=== PATIENT | female | born 1970 | race African-American/Black ===

== ENCOUNTER 2018-04-01 09:09 | Inpatient (IN) | payer MEDICAID ==
[~2018-04-01] VITALS: Ht 170.2 cm; Wt 91.2 kg
[2018-04-01] MEDS ORDERED: ACETAMINOPHEN 325MG TABLET PO STA (09:48)
[2018-04-01] MEDS ORDERED: SODIUM CHLORIDE 0.9% 1,000 ML IV ONE (09:48)
[2018-04-01 10:59] LABS: MEAN CORPUSCULAR HEMOGLOBIN 18.2 pg (28.0-32.0); MEAN CORPUSCULAR VOLUME 62.3 fL (81.0-99.0); MEAN PLATELET VOLUME 7.7 fl (7.4-10.4); PLATELET 320 x1000/uL (130-400); RED BLOOD CELL COUNT 3.37 mill/uL (4.2-5.4); RED CELL DISTRIBUTION WIDTH 18.8 % (11.6-14.6)
[2018-04-01 11:06] LABS: CHLORIDE 105 mEq/L (98-107); PROTHROMBIN TIME 10.5 sec (9.1-11.1)
[2018-04-01 11:08] LABS: HEMOGLOBIN. 6.1 g/dL (12.0-16.0)
[2018-04-01 11:19] LABS: CLARITY URINE TURBID (CLEAR); COLOR URINE DARK YELLOW (YELLOW); KETONES URINE TRACE (NEGATIVE); LEUKOCYTE ESTERASE URINE 2+ (NEGATIVE); NITRITE URINE POSITIVE (NEGATIVE); OCCULT BLOOD URINE TRACE (NEGATIVE); PROTEIN URINE 2+ (NEGATIVE); SPECIFIC GRAVITY URINE 1.025 (1.005-1.030)
[2018-04-01] MEDS: VANCOMYCIN 1 G PREMIX 200 ML IV SCH ×2 (11:30→14:28)
[2018-04-01] MEDS ORDERED: CEFTRIAXONE 1 G PREMIX 50 ML IV ONE (11:30)
[2018-04-01 11:59] LABS: PLATELET ESTIMATE NORMAL
[2018-04-01] MEDS ORDERED: ACETAMINOPHEN 325MG TABLET PO PRN (15:00)
[2018-04-01] MEDS ORDERED: SENNOSIDES/DOCUSATE SOD 8.6/50MG TABLET PO PRN (15:00)
[2018-04-01] MEDS ORDERED: ONDANSETRON HCL 4MG/2ML INJ IV PRN (15:00)
[2018-04-01] MEDS ORDERED: ACETAMINOPHEN 650MG/20.3ML UDC GT PRN (15:00)
[2018-04-01] MEDS ORDERED: ACETAMINOPHEN 650MG SUPP PR PRN (15:00)
[2018-04-01] MEDS: HYDROCODONE/ACETAMINOPHEN 10/325MG TABLET PO PRN ×2 (16:54→22:14)
[2018-04-01] MEDS: SODIUM CHLORIDE 0.45% 1,000 ML IV SCH ×2 (18:48→22:15)
[2018-04-01 19:52] LABS: HEMATOCRIT. 22.5 % (36.0-48.0); MEAN CORPUSCULAR HEMOGLOBIN 19.4 pg (28.0-32.0); MEAN CORPUSCULAR VOLUME 63.8 fL (81.0-99.0); MEAN PLATELET VOLUME 7.3 fl (7.4-10.4); PLATELET 289 x1000/uL (130-400); RED BLOOD CELL COUNT 3.52 mill/uL (4.2-5.4); RED CELL DISTRIBUTION WIDTH 22.4 % (11.6-14.6)
[2018-04-01 19:56] LABS: HEMOGLOBIN. 6.8 g/dL (12.0-16.0)
[2018-04-01 20:24] LABS: PLATELET ESTIMATE NORMAL
[2018-04-01 20:30] LABS: TOTAL IRON BINDING CAPACITY 355 ug/dL (250-450)
[2018-04-01 20:44] VITALS: BP 102/53
[2018-04-01 20:51] LABS: FOLIC ACID (FOLATE) SERUM 3.8 ng/mL (>5.38)
[2018-04-01 21:36] VITALS: BP 102/53
[2018-04-01] MEDS: FERROUS SULFATE 325MG TABLET PO SCH (22:14)
[2018-04-01] MEDS: DOCUSATE SODIUM 100MG CAPSULE PO SCH (22:15)
[2018-04-02] VITALS (11 sets, daily range): BP systolic 84–134; BP diastolic 40–77
[2018-04-02] MEDS ORDERED: METRONIDAZOLE 500MG TABLET PO SCH (01:00)
[2018-04-02 07:47] LABS: MEAN CORPUSCULAR HEMOGLOBIN 19.3 pg (28.0-32.0); MEAN CORPUSCULAR VOLUME 64.5 fL (81.0-99.0); MEAN PLATELET VOLUME 7.7 fl (7.4-10.4); PLATELET 268 x1000/uL (130-400); RED BLOOD CELL COUNT 3.26 mill/uL (4.2-5.4); RED CELL DISTRIBUTION WIDTH 21.6 % (11.6-14.6)
[2018-04-02 07:51] LABS: HEMOGLOBIN. 6.3 g/dL (12.0-16.0)
[2018-04-02 07:59] LABS: CHLORIDE 104 mEq/L (98-107)
[2018-04-02 08:18] LABS: CREATINE KINASE 41 IU/L (26-192); CREATINE KINASE MB FRACTION < 1.0 ng/mL (0.5-3.6); HDL CHOLESTEROL 39 mg/dL (40-59); LDL CHOLESTEROL 15 mg/dL (5-100); T4 FREE 1.19 ng/dL (0.76-1.46)
[2018-04-02] MEDS: DOCUSATE SODIUM 100MG CAPSULE PO SCH (09:04)
[2018-04-02] MEDS: FERROUS SULFATE 325MG TABLET PO SCH ×3 (09:04→17:23)
[2018-04-02 09:09] LABS: UCG SCREEN NEGATIVE
[2018-04-02] MEDS: HYDROCODONE/ACETAMINOPHEN 5/325MG TABLET PO PRN ×2 (09:10→17:35)
[2018-04-02] MEDS ORDERED: SODIUM BICARBONATE 4% (2.4MEQ) 5ML VIAL IV ONE (09:49)
[2018-04-02] MEDS ORDERED: POTASSIUM CHLORIDE 20MEQ/PACKET PO NR (11:15)
[2018-04-02] MEDS: SODIUM CHLORIDE 0.45% 1,000 ML IV SCH (11:45)
[2018-04-02 11:53] LABS: PLATELET ESTIMATE NORMAL
[2018-04-02] MEDS ORDERED: CEFTRIAXONE 1 G PREMIX 50 ML IV SCH (12:00)
[2018-04-02] MEDS: SODIUM CHLORIDE 0.9% 1,000 ML IV SCH ×2 (12:00→22:39)
[2018-04-02] MEDS ORDERED: FAMOTIDINE 20MG/2ML VIAL IV NR (16:45)
[2018-04-02] MEDS ORDERED: DIPHENHYDRAMINE 50MG/ML VIAL IV NR (16:45)
[2018-04-02 18:12] LABS: HEMATOCRIT 22.8 % (36.0-48.0)
[2018-04-02 18:38] LABS: HCG SCREEN NEGATIVE
[2018-04-02] MEDS ORDERED: DIPHENHYDRAMINE 50MG/ML VIAL IM PRN (19:00)
[2018-04-03] VITALS (14 sets, daily range): BP systolic 97–126; BP diastolic 48–72
[2018-04-03 07:39] LABS: HEMATOCRIT. 24.1 % (36.0-48.0); HEMOGLOBIN. 7.3 g/dL (12.0-16.0); MEAN CORPUSCULAR HEMOGLOBIN 20.6 pg (28.0-32.0); MEAN CORPUSCULAR VOLUME 67.8 fL (81.0-99.0); PLATELET 265 x1000/uL (130-400); RED BLOOD CELL COUNT 3.56 mill/uL (4.2-5.4); RED CELL DISTRIBUTION WIDTH 24.9 % (11.6-14.6)
[2018-04-03 07:41] LABS: CHLORIDE 108 mEq/L (98-107)
[2018-04-03 07:52] LABS: PHOSPHORUS 2.8 mg/dL (2.5-4.9)
[2018-04-03] MEDS: DOCUSATE SODIUM 100MG CAPSULE PO SCH (07:58)
[2018-04-03] MEDS: SODIUM CHLORIDE 0.9% 1,000 ML IV SCH ×3 (07:58→21:24)
[2018-04-03] MEDS: FERROUS SULFATE 325MG TABLET PO SCH ×3 (07:58→18:16)
[2018-04-03 08:07] LABS: HEPATITIS B SURFACE ANTIGEN NEGATIVE
[2018-04-03] MEDS: HYDROCODONE/ACETAMINOPHEN 5/325MG TABLET PO PRN ×2 (08:18→19:07)
[2018-04-03 08:37] LABS: HEPATITIS A AB IGM NEGATIVE (NEGATIVE)
[2018-04-03] MEDS ORDERED: PIPERACILLIN/TAZ 3.375G PREMIX 50 ML IV SCH (10:30)
[2018-04-03] MEDS: PIPERACILLIN/TAZ 3.375G PREMIX 50 ML IV SCH ×2 (11:15→18:16)
[2018-04-03 11:16] LABS: PLATELET ESTIMATE NORMAL
[2018-04-03] MEDS: DIPHENHYDRAMINE 25MG CAPSULE PO PRN (23:03)
[2018-04-04] VITALS (9 sets, daily range): BP systolic 103–142; BP diastolic 61–85
[2018-04-04] MEDS: SODIUM CHLORIDE 0.9% 1,000 ML IV SCH ×3 (04:35→21:34)
[2018-04-04] MEDS: PIPERACILLIN/TAZ 3.375G PREMIX 50 ML IV SCH ×3 (05:25→12:08)
[2018-04-04] MEDS: FERROUS SULFATE 325MG TABLET PO SCH ×3 (08:26→18:02)
[2018-04-04] MEDS: DOCUSATE SODIUM 100MG CAPSULE PO SCH (08:26)
[2018-04-04] MEDS: DIPHENHYDRAMINE 25MG CAPSULE PO PRN ×2 (08:33→23:49)
[2018-04-04] MEDS: HYDROCODONE/ACETAMINOPHEN 5/325MG TABLET PO PRN (08:35)
[2018-04-04 09:25] LABS: RED BLOOD CELL COUNT 3.14 mill/uL (4.2-5.4)
[2018-04-04 09:27] LABS: HEMOGLOBIN. 6.7 g/dL (12.0-16.0)
[2018-04-04 09:28] LABS: BASOPHILS % 0.5 % (0.0-2.0); EOSINOPHILS % 1.3 % (0.0-5.0); HEMATOCRIT. 21.2 % (36.0-48.0); LYMPHOCYTES % 11.2 % (20.0-50.0); MEAN CORPUSCULAR HEMOGLOBIN 21.3 pg (28.0-32.0); MEAN CORPUSCULAR VOLUME 67.5 fL (81.0-99.0); MEAN PLATELET VOLUME 8.3 fl (7.4-10.4); MONOCYTES % 7.2 % (2.0-8.0); NEUTROPHILS % 79.8 % (40.0-76.0); PLATELET 278 x1000/uL (130-400); RED CELL DISTRIBUTION WIDTH 25.1 % (11.6-14.6)
[2018-04-04 12:02] LABS: PHOSPHORUS 3.2 mg/dL (2.5-4.9)
[2018-04-04] MEDS ORDERED: MAGNESIUM CITRATE 300ML SOLUTION PO NR (13:00)
[2018-04-04 13:06] LABS: HIV SCREEN 4G Non Reactive (Non Reactive)
[2018-04-04] MEDS ORDERED: SORBITOL 70% SOLN 30ML PO NR (15:00)
[2018-04-04 17:06] LABS: ANTI-DNA DOUBLE STRANDED QUANT < 1 IU/mL (0-9)
[2018-04-04] MEDS: PANTOPRAZOLE SODIUM 40 MG/VIAL IV SCH (20:07)
[2018-04-04] MEDS ORDERED: DIPHENHYDRAMINE 50MG/ML VIAL IV PRN (22:00)
[2018-04-05 00:51] VITALS: BP 136/82
[2018-04-05] MEDS: HYDROCODONE/ACETAMINOPHEN 5/325MG TABLET PO PRN ×2 (00:56→12:47)
[2018-04-05 04:00] VITALS: BP 134/77
[2018-04-05] MEDS: SODIUM CHLORIDE 0.9% 1,000 ML IV SCH ×3 (04:48→21:32)
[2018-04-05 08:00] VITALS: BP 153/93
[2018-04-05 09:06] LABS: COMPLEMENT C3 144 mg/dL (82-167)
[2018-04-05] MEDS: FERROUS SULFATE 325MG TABLET PO SCH ×3 (09:26→17:39)
[2018-04-05] MEDS: DOCUSATE SODIUM 100MG CAPSULE PO SCH (09:26)
[2018-04-05] MEDS: PANTOPRAZOLE SODIUM 40 MG/VIAL IV SCH ×2 (09:26→20:01)
[2018-04-05 09:41] LABS: HEMATOCRIT. 25.7 % (36.0-48.0); HEMOGLOBIN. 8.1 g/dL (12.0-16.0); MEAN CORPUSCULAR HEMOGLOBIN 21.7 pg (28.0-32.0); MEAN CORPUSCULAR VOLUME 69.2 fL (81.0-99.0); MEAN PLATELET VOLUME 7.8 fl (7.4-10.4); PLATELET 315 x1000/uL (130-400); RED BLOOD CELL COUNT 3.72 mill/uL (4.2-5.4); RED CELL DISTRIBUTION WIDTH 27.6 % (11.6-14.6)
[2018-04-05 09:56] LABS: CHLORIDE 110 mEq/L (98-107)
[2018-04-05 10:07] LABS: PHOSPHORUS 2.7 mg/dL (2.5-4.9)
[2018-04-05 10:28] LABS: PLATELET ESTIMATE NORMAL
[2018-04-05 12:00] VITALS: BP 171/99
[2018-04-05] MEDS: LEVOFLOXACIN 250MG TABLET PO SCH (12:40)
[2018-04-05] MEDS ORDERED: IBUPROFEN 200MG TABLET PO PRN (13:15)
[2018-04-05 14:32] LABS: TOTAL IRON BINDING CAPACITY 280 ug/dL (250-450)
[2018-04-05 16:00] VITALS: BP 131/79
[2018-04-05] MEDS ORDERED: SORBITOL 70% SOLN 30ML PO NR ×2 (16:00→20:00)
[2018-04-05 20:00] VITALS: BP 163/91
[2018-04-06] VITALS: BP 157/89
[2018-04-06 04:00] VITALS: BP 138/69
[2018-04-06 06:22] LABS: HEMATOCRIT. 25.6 % (36.0-48.0); HEMOGLOBIN. 8.1 g/dL (12.0-16.0); MEAN CORPUSCULAR HEMOGLOBIN 21.9 pg (28.0-32.0); MEAN CORPUSCULAR VOLUME 69.6 fL (81.0-99.0); MEAN PLATELET VOLUME 7.8 fl (7.4-10.4); PLATELET 333 x1000/uL (130-400); RED BLOOD CELL COUNT 3.68 mill/uL (4.2-5.4); RED CELL DISTRIBUTION WIDTH 27.3 % (11.6-14.6)
[2018-04-06 07:08] LABS: CHLORIDE 114 mEq/L (98-107)
[2018-04-06 07:40] LABS: INR 1.1; PARTIAL THROMBOPLASTIN TIME 28.7 sec (23.4-31.0); PROTHROMBIN TIME 10.7 sec (9.1-11.1)
[2018-04-06] MEDS: FERROUS SULFATE 325MG TABLET PO SCH (07:40)
[2018-04-06 08:00] VITALS: BP 168/94
[2018-04-06] MEDS ORDERED: NA PHOS,M-B/NA PHOS,DI-BA ENEMA 118ML PR NR (09:00)
[2018-04-06] MEDS: DOCUSATE SODIUM 100MG CAPSULE PO SCH (09:00)
[2018-04-06 09:19] LABS: CLARITY URINE TURBID (CLEAR); COLOR URINE DARK YELLOW (YELLOW); KETONES URINE TRACE (NEGATIVE); LEUKOCYTE ESTERASE URINE 2+ (NEGATIVE); NITRITE URINE NEGATIVE (NEGATIVE); OCCULT BLOOD URINE TRACE (NEGATIVE); PROTEIN URINE 1+ (NEGATIVE); SPECIFIC GRAVITY URINE 1.028 (1.005-1.030)
[2018-04-06] MEDS: PANTOPRAZOLE SODIUM 40 MG/VIAL IV SCH ×2 (09:40→21:00)
[2018-04-06] MEDS: SODIUM CHLORIDE 0.9% 1,000 ML IV SCH (09:40)
[2018-04-06 09:59] LABS: PLATELET ESTIMATE NORMAL
[2018-04-06] MEDS: LEVOFLOXACIN 250MG TABLET PO SCH (11:22)
[2018-04-06 14:01] VITALS: BP 163/87
[2018-04-06 16:00] VITALS: BP 165/90
[2018-04-06] MEDS ORDERED: SORBITOL 70% SOLN 30ML PO NR ×2 (18:43→19:51)
[2018-04-06 20:00] VITALS: BP 157/83
[2018-04-07] VITALS (7 sets, daily range): BP systolic 129–179; BP diastolic 75–91
[2018-04-07] MEDS ORDERED: SORBITOL 70% SOLN 30ML PO SCH (06:00)
[2018-04-07 07:21] LABS: BASOPHILS % 0.3 % (0.0-2.0); EOSINOPHILS % 2.3 % (0.0-5.0); HEMATOCRIT. 25.9 % (36.0-48.0); LYMPHOCYTES % 20.1 % (20.0-50.0); MEAN CORPUSCULAR HEMOGLOBIN 21.7 pg (28.0-32.0); MEAN CORPUSCULAR VOLUME 70.1 fL (81.0-99.0); MEAN PLATELET VOLUME 7.6 fl (7.4-10.4); MONOCYTES % 8.1 % (2.0-8.0); NEUTROPHILS % 69.2 % (40.0-76.0); PLATELET 360 x1000/uL (130-400); RED CELL DISTRIBUTION WIDTH 27.8 % (11.6-14.6)
[2018-04-07] MEDS: SODIUM CHLORIDE 0.9% 1,000 ML IV SCH (07:24)
[2018-04-07 07:59] LABS: CHLORIDE 112 mEq/L (98-107)
[2018-04-07] MEDS: DOCUSATE SODIUM 100MG CAPSULE PO SCH (09:17)
[2018-04-07] MEDS: FERROUS SULFATE 325MG TABLET PO SCH ×2 (09:18→12:40)
[2018-04-07] MEDS: PANTOPRAZOLE SODIUM 40 MG/VIAL IV SCH (09:18)
[2018-04-07] MEDS ORDERED: SODIUM CHLORIDE 0.9% 10ML VIAL ONE (10:47)
[2018-04-07] MEDS ORDERED: HYDRALAZINE 20MG/ML VIAL IV SCH (12:00)
[2018-04-07] MEDS ORDERED: AMLODIPINE 5MG TABLET PO SCH (14:15)
[2018-04-07] MEDS ORDERED: FENTANYL CITRATE/PF 50MCG/ML 2ML VIAL ONE (15:23)
[2018-04-07] MEDS ORDERED: MIDAZOLAM HCL 5 MG/5 ML VIAL ONE ×2 (15:23→15:51)
[2018-04-07] MEDS ORDERED: SIMETHICONE 40 MG/0.6 ML 30ML ONE (15:24)
[2018-04-07] MEDS ORDERED: FENTANYL CITRATE/PF 50MCG/ML 2ML VIAL IV PRN (15:35)
[2018-04-07] MEDS ORDERED: MIDAZOLAM HCL 5 MG/5 ML VIAL IV PRN (15:43)
[2018-04-07] MEDS: LEVOFLOXACIN 250MG TABLET PO SCH (17:33)
[2018-04-07] MEDS ORDERED: FERROUS SULFATE 325MG TABLET PO SCH (17:40)
[2018-04-07] MEDS ORDERED: CLONIDINE 0.1MG TABLET PO PRN (18:00)
[2018-04-07] MEDS ORDERED: PROT40 MT (18:14)
[2018-04-07] MEDS ORDERED: FERR325T23 PO (18:14)
[2018-04-07] MEDS ORDERED: DOCU-138 PO (18:14)
[2018-04-07] MEDS ORDERED: AMLO5TAB88 PO (18:14)
[2018-04-07] MEDS ORDERED: HYDRALAZINE 20MG/ML VIAL IV ONE (18:15)
[2018-04-07] MEDS ORDERED: HYDRALAZINE 20 MG in SODIUM CHLORIDE 0.9% 50 ML IV NR (18:30)
[2018-04-07] MEDS ORDERED: AMLODIPINE 10MG TABLET PO NR (20:30)
[2018-04-07] MEDS ORDERED: AMLODIPINE 5MG TABLET PO NR (21:30)
[2018-04-08 17:11] LABS: ANA IFA Negative (.)
== END 2018-04-07 20:45 | disposition home or self-care (01) | DRG 720 ==
LOC: ER 10:07 → ENRESERV 19:23 → 7WST 20:17 → 3WST 04-02 18:07 → 8WST 04-03 22:26
PROVIDERS: ADMIT Internal Medicine; ATTEND Internal Medicine
PROC: 30233N1 Transfusion of Nonautologous Red Blood Cells into Peripheral Vein, Percutaneous Approach (ICD-10-PCS; principal; 2018-04-01)
PROC: 0DJ08ZZ Inspection of Upper Intestinal Tract, Via Natural or Artificial Opening Endoscopic (ICD-10-PCS; 2018-04-07)
PROC: 0DJD8ZZ Inspection of Lower Intestinal Tract, Via Natural or Artificial Opening Endoscopic (ICD-10-PCS; 2018-04-07)
DX: A41.51 Sepsis due to Escherichia coli [E. coli] (principal); E43 Unspecified severe protein-calorie malnutrition; N17.9 Acute kidney failure, unspecified; I95.9 Hypotension, unspecified; K92.2 Gastrointestinal hemorrhage, unspecified; E88.09 Other disorders of plasma-protein metabolism, not elsewhere classified; A59.9 Trichomoniasis, unspecified; R65.20 Severe sepsis without septic shock; D50.9 Iron deficiency anemia, unspecified; D25.9 Leiomyoma of uterus, unspecified; E87.6 Hypokalemia; G89.29 Other chronic pain; N12 Tubulo-interstitial nephritis, not specified as acute or chronic; R00.1 Bradycardia, unspecified; R79.82 Elevated C-reactive protein (CRP); R07.89 Other chest pain; Z68.31 Body mass index [BMI] 31.0-31.9, adult; Z91.19 Patient's noncompliance with other medical treatment and regimen; Z98.891 History of uterine scar from previous surgery; M94.0 Chondrocostal junction syndrome [Tietze]
CPT/HCPCS: 36415; 71045; 74176; 78580; 80048; 80061; 81025; 82550; 82553; 82607; 82728; 82746; 83010; 83540; 83550; 83605; 83615; 83735; 84100; 84145; 84439; 84443; 84481; 84484; 84703; 85014; 85018; 85044; 85379; 85651; 86078; 86140; 86160; 86225; 86256; 86705; 86709; 86803; 86850; 86900; 86920; 87077; 87186; 87340; 87389; 87804; 93005; 93306; 93970; 96361; 96365; 96366; 99152; 99291; A4216; C1893; C9113; J0360; J0696; J1200; J2250; J2405; J2543; J3010; J3370; J3490; J7030; J7040; J7050; P9016; Q0163; G0500

== ENCOUNTER 2019-04-01 18:00 | Emergency (ER) | payer SELFPAY ==
[~2019-04-01] VITALS: Ht 170.2 cm; Wt 88.0 kg
[~2019-04-01 18:00] MED LIST: AMLO5TAB88 PO; DOCU-138 PO; FERR325T23 PO; PROT40 MT
[2019-04-01 18:21] VITALS: BP 149/84
[2019-04-01] MEDS ORDERED: IBUPROFEN 600MG TABLET PO STA (18:32)
== END 2019-04-01 20:00 | disposition home or self-care (01) ==
LOC: ER 18:00
DX: M94.0 Chondrocostal junction syndrome [Tietze] (principal)
CPT/HCPCS: 71046; 81025; 87070; 87430; 99284